=== PATIENT | female | born 1970 | race American Indian/Alaskan Native ===

== ENCOUNTER 2023-06-06 20:43 | Emergency (ER) | payer MEDICAID, OTHER ==
[2023-06-06 20:56] VITALS: BP 115/57; PULSE 96
[2023-06-06] MEDS ORDERED: Bacitracin Oint 1 GM U/D Packet TOP ONE (20:57)
[2023-06-06] MEDS ORDERED: Diphtheria,Pertussis(Acell),Tetanus Vaccine 0.5 ML Syringe IM ONE (20:57)
[2023-06-06] MEDS ORDERED: Lidocaine 1% with EPINEPHrine 1:100,000 50 ML MDV INFILT ONE (20:57)
== END 2023-06-06 21:49 | disposition home or self-care (01) ==
LOC: JP.ED 20:43
DX: S91.012A Laceration without foreign body, left ankle, initial encounter (principal); K21.9 Gastro-esophageal reflux disease without esophagitis; Z23 Encounter for immunization; Z79.899 Other long term (current) drug therapy; Z72.0 Tobacco use; W26.8XXA Contact with other sharp object(s), not elsewhere classified, initial encounter
CPT/HCPCS: 12002; 90471; 90715; 99282; 99282-25